=== PATIENT | female | born 1995 | race Caucasian/White ===

== ENCOUNTER 2025-05-20 08:57 | Emergency (ER) | payer BC ==
[~2025-05-20] VITALS: Ht 172.7 cm; Wt 105.5 kg
[2025-05-20 09:08] VITALS: TEMP 97.3
[2025-05-20 10:15] LABS: LEUKOCYTE ESTERASE ,URINE NEGATIVE (Neg); NITRITES, URINE NEGATIVE (Neg); OCCULT BLOOD,URINE MODERATE (Neg)
[2025-05-20 10:17] LABS: URINE HCG NEGATIVE (NEG)
[2025-05-20 10:20] LABS: UA COLLECTION TYPE CLN CATCH MIDSTREAM
[2025-05-20 10:22] LABS: HYALINE CASTS 0-3 /LPF (NEGATIVE); MUCUS STRANDS MANY /LPF (Neg); SQUAMOUS EPITHELIAL CELL,UR MANY /LPF (FEW)
[2025-05-20] MEDS: normal saline 1000ML IV soln IVB ONE (10:25)
[2025-05-20] MEDS: ondansetron/PF 4mg/2ml inj IV ONE ×2 (10:29→13:16)
[2025-05-20] MEDS: ketorolac trometh 30MG/ML vial 30 MG/ML VIAL IV ONE (10:29)
[2025-05-20 10:41] LABS: CREATININE 0.91 MG/DL (0.40-0.90); TOTAL CARBON DIOXIDE 25.7 MMOL/L (24-32); eCRCL 90 ML/MIN; eGFR 72 ML/MIN
[2025-05-20] MEDS: morphine 4 MG/ML inj SYRINge IV ONE ×2 (11:03→13:17)
[2025-05-20 11:40] LABS: MEAN PLATELET VOLUME 8.8 FL (7.4-10.4); RED CELL DISTRIBUTION WIDTH 12.7 % (11.5-14.5)
--- NOTE | 2025-05-20 11:46 | RADIOLOGY REPORT ---
Exam: CT CT ABDOMEN PELVIS History: ABD PAIN Comparison Study: None TECHNIQUE: Multidetector CT of the abdomen was performed from lung bases to pubic symphysis. Imaging was performed without IV contrast. Axial, coronal and sagittal multiplanar reformats were obtained from the axial data set by the technologist. Radiation Dose Information: Dose-length product is 1666 mGy*cm FINDINGS: Limited sections of the lung bases demonstrate no focal pulmonary mass. The liver, spleen, pancreas, and both adrenal glands demonstrate no acute findings. The gallbladder is surgically removed Evidence of prior gastric surgery. Right lower pelvic loops of fluid-filled structures likely component of small- bowel although cystic Right ovary or hydrosalpinx not entirely excluded. additionally enteritis or inflamed right ovary in this region is not excluded ; consider pelvic ultrasound if there is continued concern. The appendix is not clearly identified, although there are no secondary signs of appendicitis. No colonic obstruction. Scattered colonic diverticulosis without acute diverticulitis. Difficult evaluation as there are scattered pelvic phleboliths although there is suspected 1-2 mm obstructive stone at the right UVJ with associated moderate right hydroureteronephrosis. Scattered punctate nonobstructive stones are noted within the right kidney. Left collecting system is unremarkable. urinary bladder wall thickening which may reflect cystitis vs partial nondistention; consider correlation with urinarlysis. No significant lymphadenopathy. IUD noted. Trace pelvic free fluid. No free air. The aorta and IVC demonstrate no acute findings. Visualized osseous structures demonstrate no acute abnormality. IMPRESSION: 1. Difficult evaluation as there are scattered pelvic phleboliths although there is suspected 1-2 mm obstructive stone at the right UVJ with associated moderate right hydronephrosis. 2. urinary bladder wall thickening which may reflect cystitis vs partial nondistention; consider correlation with urinarlysis. 3. Right lower pelvic loops of fluid-filled structures likely component of small-bowel although cystic Right ovary or hydrosalpinx not entirely excluded. additionally enteritis or inflamed right ovary in this region is not excluded ; consider pelvic ultrasound if there is continued concern.
--- NOTE | 2025-05-20 13:02 | Physician Documentation ---
History of Present Illness Chief Complaint: Flank Pain Stated Complaint: R SIDED FLANK PAIN/VOMITING Time Seen by MD: 10:03 Mode of Arrival: POV HPI 29-year-old female patient without past medical history woke up with a right flank pain radiating to the groin with nausea vomiting and severe abdominal pain. No fever no chills. The patient's denies chest pain, shortness a breath, headaches. Medication Reconciliation Allergies: Coded Allergies: No Known Allergies (Unverified , 05/20/25) Scheduled Tadalafil* (Cialis*), 1 TAB PO DAILY Tamsulosin Hcl* (Flomax*), 1 CAP PO DAILY Scheduled PRN Hydrocodone Bit/Acetaminophen (Hydrocodone-Apap 10-325 Tablet), 1 TABLET PO Q4H PRN for moderate or severe pain 4-10 ONDANSETRON ODT 4mg tablet (Ondansetron Odt), 1 TAB PO Q6H PRN PRN for nausea/vomiting Review of Systems ROS As stated above in the HPI, otherwise all systems are reviewed and negative. Physical Exam Vital Signs: Temperature: 97.3, Source: Temporal, Heart Rate: 79, Respiratory Rate: 16, BP: 125/74, Pulse Oximetry: 98, Weight: 105.500 Oxygen Flow Rate: 0 General Appearance Reviewed vital signs and they are well within normal range. Const: In fair amount of pain Head: Atraumatic Eyes: Normal Conjunctiva ENT: Normal External Ears, Nose and Mouth. Moist mucous membranes Neck: Full range of motion. No meningismus Resp: Clear to auscultation bilaterally. Normal work of breathing Cardio: Regular rate and rhythm, no murmurs. Skin well perfused Abd: Soft, non-tender, non-distended. Normal bowel sounds. No rebound or guarding Skin: No petechiae or rashes. Warm and dry Back: No midline or flank tenderness Ext: No cyanosis, or edema Neuro: Awake and alert Psych: Normal Mood and Affect Progress Results/Orders Results/Orders Orders - MATEUSZ MA MD Ct Abdomen Pelvis (05/20/25 11:09) Completed Orders - MATEUSZ MA MD Hcg, Ur Ql (05/20/25 09:25) Normal Saline 1000ml (0.9% Sodium Chlori (05/20/25 10:10) Ketorolac Trometh 30mg/Ml Vial (Toradol (05/20/25 10:10) Ua W/Microscopic, Cult If Ind (05/20/25 09:43) Ondansetron Inj. (Zofran 4mg/2ml Vial) (05/20/25 10:25) Cbc/Diff (05/20/25 10:29) Morphine 4mg/Ml Inj. (Morphine Inj.) (05/20/25 10:55) Ct Abdomen Pelvis (05/20/25 11:09) Ondansetron Inj. (Zofran 4mg/2ml Vial) (05/20/25 12:45) Morphine 4mg/Ml Inj. (Morphine Inj.) (05/20/25 12:45) Medications Received in ER Medications (Trade) Dose Ordered Sig/Derek Route PRN Reason Start Time Stop Time Status Last Admin Dose Admin (0.9% sodium chloride (NS) 1000ml IV soln) 1,000 ml ONCE ONCE IVB 05/20/25 10:10 05/20/25 10:11 DC 05/20/25 10:25 1,000 ML (Toradol inj. 30mg/ml) 30 mg ONCE ONCE IV 05/20/25 10:10 05/20/25 10:11 DC 05/20/25 10:29 30 MG (Zofran 4mg/2ml vial) 4 mg ONCE ONCE IV 05/20/25 10:25 05/20/25 10:26 DC 05/20/25 10:29 4 MG (morphine inj.) 4 mg ONCE ONCE IV 05/20/25 10:55 05/20/25 10:56 DC 05/20/25 11:03 4 MG Vital Signs 05/20/25 05/20/25 05/20/25 05/20/25 09:08 10:29 10:54 10:56 Temp 97.3 Pulse 81 Resp 18 18 16 B/P (MAP) 150/94 Pulse Ox 100 05/20/25 05/20/25 05/20/25 05/20/25 11:00 11:03 12:39 12:39 Pulse 76 79 Resp 16 16 15 16 B/P (MAP) 140/86 (104) 125/74 (91) Pulse Ox 100 98 O2 Flow Rate 0 0 Laboratory Tests Test 05/20/25 09:43 05/20/25 10:14 05/20/25 11:30 CBC Comment Urine Specimen Description Cln catch midstream Urine Color Yellow Urine Clarity Cloudy Urine pH 6.0 Urine Specific [place] >=1.030 Urine Protein Trace Urine Glucose (UA) Negative Urine Ketones 15 H Urine Occult Blood Moderate H Urine Nitrite Negative Urine Bilirubin Negative Urine Urobilinogen 0.2 Urine Leukocyte Esterase Negative Urine RBC 10-20 Urine WBC 0-4 Urine Squamous Epithelial Cells Many Urine Bacteria 2+ Urine Hyaline Casts 0-3 Urine Mucus Many Urine Culture Indicated Not ind Volume Urine Centrifuged 10 ml Urine HCG, Qualitative Negative Urine Comment Chemistry Comments Sodium Level 139 Potassium Level 4.0 Chloride Level 106 Carbon Dioxide Level 25.7 Anion Gap 7 L Blood Urea Nitrogen 16 Creatinine 0.91 H Estimated GFR/1.73 m2 72 BUN/Creatinine Ratio 17.6 Glucose Level 108 H Calcium Level 8.6 Total Bilirubin 0.5 Aspartate Amino Transf (AST/SGOT) 14 Alanine Aminotransferase (ALT/SGPT) 11 L Alkaline Phosphatase 87 Total Protein 8.3 H Albumin 4.1 Globulin 4.2 Albumin/Globulin Ratio 1.0 L Lipase 35 White Blood Count 12.1 H Red Blood Count 4.62 Hemoglobin 13.7 Hematocrit 40.2 Mean Corpuscular Volume 87.1 Mean Corpuscular Hemoglobin 29.8 Mean Corpuscular Hemoglobin Concent 34.2 Red Cell Distribution Width 12.7 Platelet Count 238 Mean Platelet Volume 8.8 Neutrophils (%) (Auto) 88.0 H Lymphocytes (%) (Auto) 7.9 L Monocytes (%) (Auto) 3.7 Eosinophils (%) (Auto) 0.2 Basophils (%) (Auto) 0.2 Neutrophils # (Auto) 10.6 H Lymphocytes # (Auto) 1.0 L Monocytes # (Auto) 0.4 Eosinophils # (Auto) 0.0 Basophils # (Auto) 0.0 Medical Decision Making Additional information obtaine: family Findings During the physical examination, the findings suggestive of acute life- threatening condition such as JVD, tracheal deviation, acidotic breathing, noisy stridorous breath sounds, pulses paradoxus, muffled heart sounds, unequal breath sounds, abdominal rigidity and rebound tenderness, focal neurological deficits, cool clammy skin, severe hypotension, severe tachycardia or bradycardia are absent. UA shows hematuria microscopic. CBC and CMP are well within normal range CT scan of the abdomen pelvis showed right-sided 1 to 2 mm stone in the UVJ. Patient was given fluids and analgesics We came to the shared decision-making that the patient will be treated with medical expectant therapy. DISCLAIMER Inadvertent spelling and grammatical errors,inadvertent gin operator errors,syntax errors, grammatical errors, and spelling errors are likely due to EMR/dictation software use and do not reflect on the overall quality of patient care. Note that the electronic time recorded on this note does not necessarily reflect the actual time of the patient encounter. Differential Dx:Considerations: Appendicitis, Bowel obstruction, Diverticular disease, GI hemorrhage, Ovarian cyst/torsion, Urinary obstruction, Urinary tract infection Departure Disposition: 01 HOME / SELF CARE / HOMELESS Impression: Primary Impression: Renal colic Condition: Stable Discharge Instructions: Kidney Stones, Renal Colic Additional Instructions: Thank you for coming to our Emergency Department today. Push fluids. Please ask your nurse or provider if you have questions about your care today and do not leave until all your questions have been answered. Please use any medications given as directed and follow-up with your doctor (or the doctor you were referred to) in the next 1-3 days. Your primary care doctor can help to coordinate outpatient specialty care and provide authorization for specialty referral as needed. If you do not have a primary care doctor you may follow up at a [facility] facility. You may also use motrin and tylenol as needed for fever and/or pain unless instructed otherwise by your provider or nurse. Indications for more urgent follow-up have been discussed, but you may return to the Emergency Department at ANY time for any worrisome or worsening symptoms. County Facilities: County Facilities: [facility]: [facility] [place] Address:[address] [place] [address] [facility]: [place] Address:[facility] [place] [address] [facility]: Tele[facility] Address:[facility] [place] [address] [facility] Address:[address] [place] [address] Registration Billing Pharmacy Referrals [facility] Address:[address] [place] [address] Referrals: NO PRIMARY CARE PROVIDER (PCP) Prescriptions ONDANSETRON ODT 4mg tablet (ONDANSETRON ODT) 4 Mg Tab.rapdis 1 TAB PO Q6H PRN PRN for nausea/vomiting for 4 Days, #16 TAB 0 Refills Prov: MATEUSZ MA MD 05/20/25 Tamsulosin Hcl* (Flomax*) 0.4 Mg Cap.sr.24h 1 CAP PO DAILY, #10 CAP Prov: MATEUSZ MA MD 05/20/25 Tadalafil* (Cialis*) 5 Mg Tablet 1 TAB PO DAILY for erectile dysfunction, #20 TAB Prov: MATEUSZ MA MD 05/20/25 Hydrocodone Bit/Acetaminophen (Hydrocodone-Apap 10-325 Tablet) 10mg/325mg Tablet 1 TABLET PO Q4H PRN for moderate or severe pain 4-10, #30 TAB Prov: MATEUSZ MA MD 05/20/25 Signature Scribe Signature: X Attestation: MATEUSZ NUÑEZ MD May 20, 2025 13:02
[2025-05-20] MEDS ORDERED: TAMS-55 PO (13:06)
[2025-05-20] MEDS ORDERED: TADA5TAB2 PO (13:06)
[2025-05-20] MEDS ORDERED: HYDR-3973 PO (13:06)
[2025-05-20 13:25] VITALS: BP 139/80; PULSE 81; RESP 16; O2SAT 100
[2025-05-20] MEDS ORDERED: ONDA-243 PO (13:25)
== END 2025-05-20 13:27 | disposition home or self-care (01) ==
LOC: ER 08:58
DX: N23 Unspecified renal colic (principal); Z79.899 Other long term (current) drug therapy
CPT/HCPCS: 36415; 74176; 80053; 81001; 81025; 83690; 85025; 96361; 96374; 96375; 96376; 99285; J1885; J2270; J2405; J7030